=== PATIENT | male | born 1995 | race Caucasian/White ===

== ENCOUNTER 2019-05-26 11:49 | Emergency (ER) | payer BC ==
[~2019-05-26] VITALS: Ht 175.3 cm; Wt 77.0 kg
[2019-05-26] MEDS ORDERED: KETOROLAC 60MG/2ML VIAL IM ONE (15:15)
[2019-05-26] MEDS ORDERED: LOPERAMIDE HCL 2MG CAPSULE PO ONE (15:15)
[2019-05-26] MEDS ORDERED: ONDANSETRON 4MG ODT PO ONE (15:15)
[2019-05-26 17:01] VITALS: BP 125/69
== END 2019-05-26 17:03 | disposition home or self-care (01) ==
LOC: ER 13:00
DX: K52.9 Noninfective gastroenteritis and colitis, unspecified (principal); F12.90 Cannabis use, unspecified, uncomplicated
CPT/HCPCS: 96372; 99283; J1885; Q0162